=== PATIENT | female | born 1995 | race Caucasian/White ===

== ENCOUNTER → 2018-12-16 | Outpatient (REF) | payer BC | LOC: M LAB REF 12:33 | PROVIDERS: ATTEND Physician Assistant | DX: N39.0 Urinary tract infection, site not specified (principal) ==

== ENCOUNTER → 2022-01-20 | Outpatient (CLI) | payer OTHER ==
[~2022-01-20] MED LIST: ESCITALOPRAM; FERR324T2 PO; LEXA1TAB PO; METF500T13 PO; MIRE1IUD IU; OMEP40CA4 PO
== END ==
LOC: M LABSMTC 10:46
PROVIDERS: ATTEND Anesthesiology
DX: Z01.818 Encounter for other preprocedural examination (principal); Z11.52 Encounter for screening for COVID-19

== ENCOUNTER 2022-01-25 10:00 | Day surgery (SDC) | payer OTHER ==
[~2022-01-25] VITALS: Ht 154.9 cm; Wt 124.5 kg
[~2022-01-25 10:00] MED LIST changes: +NS 1,000 ML IV ONE
[2022-01-25] MEDS ORDERED: fentaNYL 100 MCG/2 ML INJECTION As Ordered ONE (10:52)
[2022-01-25] MEDS ORDERED: propofoL 200 MG/20 ML VIAL As Ordered ONE (12:08)
[2022-01-25] MEDS ORDERED: SIMETHICONE 40MG/0.6ML DROPS 30ML As Ordered ONE (12:09)
[2022-01-25] MEDS ORDERED: LIDOCAINE 2% 100MG/5ML SDV (FOR ANES.) As Ordered ONE (12:09)
[2022-01-25 12:31] VITALS: BP 135/80
== END 2022-01-25 13:19 | disposition home or self-care (01) ==
LOC: M OPP 10:00
PROVIDERS: ATTEND Internal Medicine Gastroenterology
DX: K31.89 Other diseases of stomach and duodenum (principal); Z46.59 Encounter for fitting and adjustment of other gastrointestinal appliance and device; Z79.3 Long term (current) use of hormonal contraceptives; Z79.84 Long term (current) use of oral hypoglycemic drugs; Z79.899 Other long term (current) drug therapy; D50.9 Iron deficiency anemia, unspecified; F32.9 Major depressive disorder, single episode, unspecified; F41.9 Anxiety disorder, unspecified; Z84.1 Family history of disorders of kidney and ureter
CPT/HCPCS: 43239; 88305; 88342; J3010

== ENCOUNTER → 2022-02-13 | Outpatient (CLI) | payer OTHER ==
[~2022-02-13] MED LIST changes: -NS 1,000 ML IV ONE
== END ==
LOC: M RAD 15:55
PROVIDERS: ATTEND Internal Medicine Gastroenterology
DX: K80.44 Calculus of bile duct with chronic cholecystitis without obstruction (principal); T85.520A Displacement of bile duct prosthesis, initial encounter; Y73.2 Prosthetic and other implants, materials and accessory gastroenterology and urology devices associated with adverse incidents